=== PATIENT | male | born 1975 | race Caucasian/White ===

== ENCOUNTER 2019-06-24 18:10 | Emergency (ER) | payer BC ==
[2019-06-24 18:26] VITALS: BP 130/60
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
== END 2019-06-24 19:36 | disposition home or self-care (01) ==
LOC: UCCORT 18:10
DX: S20.219A Contusion of unspecified front wall of thorax, initial encounter (principal); W21.89XA Striking against or struck by other sports equipment, initial encounter; Y92.9 Unspecified place or not applicable; R06.02 Shortness of breath
CPT/HCPCS: 99211; G0463